=== PATIENT | male | born 1950 | race Caucasian/White ===

== ENCOUNTER 2019-08-04 23:17 | Emergency (ER) | payer OTHER, SELFPAY ==
[2019-08-04 23:18] VITALS: BP 167/106; PULSE 105; RESP 20; TEMP 36.8; O2SAT 93; BMI 40.8
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
--- NOTE | 2019-08-04 23:24 | ECG_ITS ---
[facility] Test Date: 2019-08-04 Pat Name: Bobby Genao Department: Room: Gender: Male [employer]per: : 1950 Requested By: Bg Ward Order Number: [id number] Pb MD: Lorenzo Butterfield M.D. Measurements Intervals [place] Rate: 83 P: 186 VA: 244 QRS: 163 QRSD: 113 T: 56 QT: 378 QTc: 445 Interpretive Statements ECTOPIC ATRIAL RHYTHM WITH FIRST DEGREE AV BLOCK POSSIBLE RIGHT VENTRICULAR HYPERTROPHY [SOME/ALL OF: PROMINENT R IN V1, LATE TRANSITION, RAD, SAMANTHA, SSS] No previous ECG available for comparison Electronically Signed On 08-05-2019 8:45:28 CDT by Lorenzo Butterfield M.D. [email or web address]
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
[2019-08-04 23:37] LABS: Basophils # 0.1 10^3/uL (0.0-0.1); Basophils % 0.6 %; Eosinophils # 0.3 10^3/uL (0.0-0.8); Eosinophils % 1.7 %; Hematocrit 50.9 % (42.0-52.0); Hemoglobin 16.8 g/dL (11.7-16.6); Mean Corpuscular Hemoglobin 30.4 pg (28.0-34.0); Mean Platelet Volume 10.6 fL (7.4-10.4); Monocytes # 0.9 10^3/uL (0.2-0.9); Monocytes % 5.2 %; Neutrophils # 12.2 10^3/uL (1.8-7.7); Neutrophils % 73.5 %; Nucleated Red Blood Cells % 0 %; Platelet Count 336 10^3/cmm (130-400); Red Blood Count 5.53 10^6/uL (4.1-5.3); Red Cell Distribution Width 13.2 % (12.1-15.1); White Blood Count 16.6 10^3/uL (4.0-10.0)
[2019-08-04 23:38] LABS: Glucose Point of Care 188 mg/dL (70-110)
[2019-08-04 23:39] VITALS: BP 110/64; PULSE 21; RESP 16; O2SAT 96
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
[2019-08-04] MEDS: sodium chloride 0.9% 1,000 ML 999 ML IV ×2 (23:41→23:46)
[2019-08-04 23:53] LABS: Alanine Aminotransferase 92 U/L (0-41); Albumin Level 4.3 g/dL (3.5-5.2); Alkaline Phosphatase 60 IU/L (40-130); Anion Gap 19.6 (5-19); Aspartate Amino Transferase 77 U/L (0-40); Blood Urea Nitrogen 24 mg/dL (8-23); Calcium 9.7 mg/dL (8.5-10.5); Carbon Dioxide 22 mmol/L (22-29); Chloride 102 mmol/L (98-107); Globulin 3.2 g/dL (1.3-4.6); Glomerular Filtration Rate 60.2 mL/min (90-130); Glucose 205 mg/dL (65-115); Osmolality Calculated 293 mOsm/kg (285-295); Potassium 3.6 mmol/L (3.5-5.1); Sodium 140 mmol/L (136-145); Total Bilirubin 0.8 mg/dL (0.15-1.2); Total Protein 7.5 g/dL (6.6-8.7)
[2019-08-04 23:54] VITALS: BP 116/79; PULSE 87; RESP 16; O2SAT 96
--- NOTE | 2019-08-05 00:29 | PC.NURSE ---
Patient to cat scan.
[2019-08-05] MEDS: iohexol 300 mg/mL 100 mL Btl IV (00:31)
[2019-08-05 00:54] VITALS: BP 118/72; PULSE 86; RESP 16; O2SAT 95
[2019-08-05 01:00] VITALS: BP 112/64; PULSE 70; RESP 16; O2SAT 96
[2019-08-05 02:00] VITALS: BP 111/66; PULSE 78; RESP 16; O2SAT 96
[2019-08-05 03:00] VITALS: BP 102/64; PULSE 75; RESP 16; O2SAT 96
[2019-08-05] MEDS: oxyCODONE-APAP 5-325 mg Tablet 1 TAB PO (03:10)
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
== END 2019-08-05 03:40 | disposition home or self-care (01) ==
PROVIDERS: Emergency Provider Emergency Medicine
DX: S20.219A Contusion of unspecified front wall of thorax, initial encounter (principal); V48.6XXA Car passenger injured in noncollision transport accident in traffic accident, initial encounter
CPT/HCPCS: 12345; 36416; 70450; 71045; 71260; 72125; 74177; 80053; 82962; 85025; 86850; 86900; 93005; 93308; 96360; 96361; 99283; 99284; J7030; Q9967